=== PATIENT | female | born 1940 | race Caucasian/White ===

== ENCOUNTER → 2020-02-20 | Outpatient (CLI) | payer MEDICARE ==
[~2020-02-20] MED LIST: CLIN300C5 PO; DILT180C70 PO; DORZ2SOL5 OU; ENOX80IN3; LATA0.0015 OU; METF10004 PO; METO25TA4 PO; SIMV20TA22 PO; WARF4TAB51 PO
--- NOTE | 2020-03-20 12:52 | REP ---
NON-CONTRAST CT OF THE ABDOMEN AND PELVIS DATE: 02/20/2020 at 03:22 p.m. CLINICAL: Kidney stone. COMPARISON: None. TECHNIQUE: Axial non-contrast CT images from the lung bases to the pubic symphysis with coronal and sagittal reformations. FINDINGS: The left kidney is atrophic and vascular calcifications are identified without hydronephrosis or nephroureterolithiasis. The right kidney demonstrates edematous enlargement and perinephric stranding along with hydronephrosis and a ureteral stent extending from the renal pelvis into the bladder. Multiple nonobstructing right renal calculi are identified measuring up to approximately 6 mm, as well as a calculus in the proximal ureter adjacent to the stent (image 80) measuring 6.4 mm. Bladder is partially collapsed. Liver, spleen, pancreas, and bilateral adrenal glands are normal. Cholelithiasis noted. The enteric system is without obstruction or acute inflammatory process. Sigmoid diverticula noted without acute diverticulitis. Pelvis demonstrates collapsed bladder with ureteral stent. Uterus and adnexa are grossly normal. No ascites, no free air, and no adenopathy. Atherosclerotic changes of the aorta and vasculature noted without aneurysm. Musculoskeletal structures demonstrated age-related degenerative changes. Lung bases are clear. IMPRESSION: * Right ureteral stent with enlarged kidney, perinephric stranding, intrarenal and ureteral calculi, as described above. Left kidney appears atrophic. * Cholelithiasis. * Scattered sigmoid diverticula. * Further chronic changes as above. No ascites, no free air, no adenopathy. MTDD
== END ==
LOC: M RAD 15:03
PROVIDERS: ATTEND Nurse Practitioner Family
DX: N20.0 Calculus of kidney (principal); K57.30 Diverticulosis of large intestine without perforation or abscess without bleeding; K80.20 Calculus of gallbladder without cholecystitis without obstruction; Z96.0 Presence of urogenital implants